=== PATIENT | female | born 1950 | race Caucasian/White ===

== ENCOUNTER 2016-04-20 09:35 | Day surgery (SDC) | payer MEDICAID ==
[2016-04-20] MEDS ORDERED: LIDOCAINE 1% 5 ML SDV ONE (09:53)
[2016-04-20] MEDS ORDERED: BUPIVACAINE 0.25% 10 ML SDV ONE (09:54)
[2016-04-20] MEDS ORDERED: DEXAMETHASONE 10 MG/ML VIAL ONE (09:54)
[2016-04-20] MEDS ORDERED: LIDOCAINE 1% 30 ML SDV ONE (09:54)
[2016-04-20] MEDS ORDERED: TRIAMCINOLONE ACETONIDE 40 MG/ML VIAL ONE (09:56)
[2016-04-20] MEDS ORDERED: NA BICARBONATE 50 MEQ/50 ML VIAL ONE (09:56)
[2016-04-20] MEDS ORDERED: IOPAMIDOL (ISOVUE-M 200) 20 ML VIAL IV ONE (09:57)
[2016-04-20] MEDS ORDERED: MIDAZOLAM 2 MG/2 ML VIAL ONE ×2 (10:14)
[2016-04-20] MEDS ORDERED: fentaNYL 100 MCG/2 ML INJ ONE (10:15)
[2016-04-20] MEDS ORDERED: MIDAZOLAM 2 MG/2 ML VIAL IVP PRN (10:16)
--- NOTE | 2016-04-20 15:14 | DX ---
Fluoroscopy Greater Than an Hour Indication: Right hip injection. Fluoroscopy Time: 48.7 seconds. Dose: 12.85 mGy. Findings: Two spot fluoroscopic images were performed showing needle approach to the right hip with contrast injection. Impression: Fluoroscopy provided for right hip injection. Please see separate report for full clinica l detail.
--- NOTE | 2016-04-24 02:35 | GPN ---
[f rep st] PROCEDURE NOTE DATE OF PROCEDURE: 04/20/2016 TIME OF PROCEDURE: 10 a.m. HISTORY OF PRESENT ILLNESS: The patient presents for right hip joint injection for the treatment of right hip pain and osteoarthritis. The last such injection done 11/09/2015 provided relief until about 1 month ago. She is not taking any blood thinners or antibiotics and denies allergies to shellfish, latex, contrast dye, and iodine. She denies . PROCEDURE: Right hip joint injection. DIAGNOSIS: Right hip osteoarthritis and pain. SITE: Right groin. PROVIDER: Dai Dickerson MD ANESTHESIA: Local with Versed 6 mg and fentanyl 100 mcg IV. COMPLICATIONS: None. ESTIMATED BLOOD LOSS: Minimal. PREPROCEDURE CONSENT: The preprocedure consent was obtained after the risks, benefits, and alternatives of the procedure were explained to the patient. The risks include but are not limited to nerve injury, joint injury, spinal cord injury, blood vessel injury, paralysis, brain injury or stroke, muscle injury, infection, adverse medication effect, bleeding, increased pain, , and any unforeseen consequences. The patient agreed and signed the consent for the procedure. PROCEDURE VERIFICATION AND TIMEOUT: Verbal verification of patient, site, and procedure was done. All present were in agreement. Please see nursing note for time of timeout. DESCRIPTION OF PROCEDURE: The patient was identified and placed in a supine position with the right hip externally rotated. Under fluoroscopic guidance, the femoral neck was identified and the area over the target site was prepped with ChloraPrep and draped in a sterile fashion. Then, 2 mL of 1% lidocaine were injected subcutaneously over the above location. After adequate local analgesia was obtained, a 22-gauge 3-1/2 inch spinal needle was advanced into the hip joint capsule under intermittent biplanar fluoroscopic guidance. The needle position was confirmed to be correct with fluoroscopy. After negative aspiration, 1 mL of nonionic contrast dye was injected. Good flow of dye was noted in a pattern outlining the hip joint. Then, 8 mL of a solution containing 80 mg of triamcinolone and 0.25% bupivacaine were injected in 1 mL increments with negative aspiration in between and no pain or paresthesia upon injection. The patient tolerated the procedure well and was monitored for 30 more minutes with no apparent complications, then was discharged home in good condition with a ride. She experienced no side effects from sedation and was instructed not to drive, operate heavy machinery, or make any life-altering decisions today. She was instructed to call our clinic with nonurgent concerns or 911 in an emergency. In particular, she was taught that new weakness or numbness, changes in bowel or bladder control, fever and swelling or redness over the injection site are all urgent concerns that would warrant calling 911 or going to an emergency care facility. She verbalized understanding and was discharged home with postprocedure instructions. ASSESSMENT AND PLAN: Right hip joint injection done today without complications. The patient will return to our clinic for followup and we will consider repeating the injection as needed. /[id number]/MODL MTDD
== END 2016-04-20 11:35 | disposition home or self-care (01) ==
LOC: FPAT 09:35 → FSGY 09:35
PROVIDERS: ATTEND Anesthesiology
DX: M16.11 Unilateral primary osteoarthritis, right hip (principal); M25.551 Pain in right hip
CPT/HCPCS: J2250; J3010; J3301; Q9966

== ENCOUNTER 2016-06-13 09:37 | Day surgery (SDC) | payer MEDICAID ==
[2016-06-13] MEDS ORDERED: LIDOCAINE 1% 5 ML SDV ONE (09:55)
[2016-06-13] MEDS ORDERED: MIDAZOLAM 2 MG/2 ML VIAL ONE (10:48)
[2016-06-13] MEDS ORDERED: fentaNYL 100 MCG/2 ML INJ ONE (10:49)
[2016-06-13] MEDS ORDERED: TRIAMCINOLONE ACETONIDE 40 MG/ML VIAL ONE (10:50)
[2016-06-13] MEDS ORDERED: NA BICARBONATE 50 MEQ/50 ML VIAL ONE (10:50)
[2016-06-13] MEDS ORDERED: LIDOCAINE 1% 30 ML SDV ONE (10:51)
[2016-06-13] MEDS ORDERED: BUPIVACAINE 0.25% 30 ML SDV ONE (10:51)
[2016-06-13] MEDS ORDERED: IOPAMIDOL (ISOVUE-M 200) 20 ML VIAL IV ONE (10:51)
[2016-06-13] MEDS ORDERED: DEXAMETHASONE 10 MG/ML VIAL ONE (10:51)
== END 2016-06-13 12:15 | disposition home or self-care (01) ==
LOC: FSGY 09:37
PROVIDERS: ATTEND Anesthesiology
DX: M70.61 Trochanteric bursitis, right hip (principal); M25.551 Pain in right hip; F31.9 Bipolar disorder, unspecified; J44.9 Chronic obstructive pulmonary disease, unspecified
CPT/HCPCS: J2250; J3010; J3301; Q9966

== ENCOUNTER 2016-08-23 13:32 | Emergency (ER) | payer MEDICAID ==
--- NOTE | 2016-08-23 14:06 | EDPHY ---
HPI/HX/ROS/PE/MDM Narrative: CHIEF COMPLAINT: Chest pain HPI: The patient is a 65-year-old female with a history of COPD. She has been in her usual state of health until this morning she woke up and coughed. Immediately following coughing, the patient experienced sharp anterior chest pain which persisted. Pain was primarily present only with coughing and has now largely subsided. She describes this as the worst pain she has felt. She denies diaphoresis, shortness of breath or syncope. She denies recent illness or hemoptysis. She wears 2 L of oxygen at baseline. REVIEW OF SYSTEMS: Aside from elements discussed in the HPI, a comprehensive 10-point review of systems was reviewed and is negative. PMH: COPD, no known cardiac history. SOCIAL HISTORY: Trying to quit smoking. Denies alcohol or drug abuse. PHYSICAL EXAM: General:Patient is alert, in no acute distress. ENT:Eyes are normal to inspection. ENT inspection normal. Neck: Normal inspection. Full range of motion. Respiratory:No respiratory distress. Bilateral expiratory wheezes and diminished air movement noted. Cardiovascular: Regular rate and rhythm. Strong peripheral pulses. Normal cap refill. Abdomen:The abdomen is nontender to palpation. There are no peritoneal signs. There are normal bowel sounds. Back: Normal to inspection. No tenderness to palpation. Skin: Normal color. No rash. Warm and dry. Extremities: Normal appearance. Full range of motion. Neuro: Oriented x3. Normal motor function. Normal sensory function. (Harish Enriquez) ED Course: EKG reveals sinus tachycardia with no acute ST changes. (Harish Enriquez) MDM: 1531: CT scan of the angiogram chest with IV contrast. The results of the study are shows no evidence of pulmonary embolism there is mucous plugging and atelectasis of the left lingula. No focal pneumonia. There is bronchial wall thickening.. The study was read by Dr. Faustino Jin. I viewed the images myself on the PACS system. 1557: This patient was signed over to me at 3:00 p.m. shift change from Dr. Enriquez. The patient was pending a CT angiogram per Dr. Enriquez the patient go home with the CT angiogram showed no pulmonary embolism. CT angiogram has been reviewed shows linear atelectasis mucous plugging at the left lung. This consistent where it is on the x-ray. No focal pneumonia. No PE. I did offer patient admission for shortness of breath however she has declined. She does have significant COPD, wears 2 L 24 hours a day at home, she tells me normally her oxygen saturation runs around 89-91%. On 2 L she tells me she runs 93-94. Here in the emergency room she has been running 89% to 90 on room air. I did offer breathing treatment here before going home she tells me that she has nebulizer at home and medications for breathing treatment she would not like 1 here and she would like to go home. She is requesting discharge. She does not have chest pain. Troponin negative. D-dimer positive CT angiogram negative for PE. COPD appearing picture on chest x-ray and CT. (Israel Morfin) - Data Points Imaging Results: Imaging Impressions Chest X-Ray 08/23/16 13:35 Impression: 1. COPD with mild perihilar bronchitis. 2. Interim development of a lingular infiltrate (and/or subsegmental atelectasis ) since 03/15/2016. Follow-up to assure resolution is recommended. Findings and recommendations were discussed with Harish Enriquez MD at 14:35 , on 08/23/2016. Chest/Thorax CTA 08/23/16 14:42 Impression: 1. No evidence of thrombopulmonary embolic disease. 2. Three-vessel calcified coronary plaque. 3. Minimally worse lingular atelectasis and peripheral mucous plugging. 4. No acute pulmonary process. 5. Tiny benign left upper lobe pulmonary nodules. Findings discussed with Emergency Department physician, Harish Enriquez MD on 08/23/2016 at 1530 hours. Laboratory Results: Laboratory Results 08/23/16 14:10 08/23/16 14:10 08/23/16 08/23/16 08/23/16 14:10 14:10 14:10 WBC 8.72 10^3/uL 10^3/uL (3.80-9.50) RBC 4.09 10^6/uL L 10^6/uL (4.18-5.33) Hgb 14.1 g/dL g/dL (12.6-16.3) Hct 39.9 % % (38.0-47.0) MCV 97.6 fL fL (81.5-99.8) MCH 34.5 pg H pg (27.9-34.1) MCHC 35.3 g/dL g/dL (32.4-36.7) RDW 11.6 % % (11.5-15.2) Plt Count 238 10^3/uL 10^3/uL (150-400) MPV 9.8 fL fL (8.7-11.7) Neut % (Auto) 74.9 % H % (39.3-74.2) Lymph % (Auto) 13.9 % L % (15.0-45.0) Angelina % (Auto) 9.5 % % (4.5-13.0) Eos % (Auto) 0.5 % L % (0.6-7.6) Baso % (Auto) 0.5 % % (0.3-1.7) Nucleat RBC Rel Count 0.0 % % (0.0-0.2) Absolute Neuts (auto) 6.54 10^3/uL H 10^3/uL (1.70-6.50) Absolute Lymphs (auto) 1.21 10^3/uL 10^3/uL (1.00-3.00) Absolute Monos (auto) 0.83 10^3/uL H 10^3/uL (0.30-0.80) Absolute Eos (auto) 0.04 10^3/uL 10^3/uL (0.03-0.40) Absolute Basos (auto) 0.04 10^3/uL 10^3/uL (0.02-0.10) Absolute Nucleated RBC 0.00 10^3/uL 10^3/uL (0-0.01) Immature Gran % 0.7 % % (0.0-1.1) Immature Gran # 0.06 10^3/uL 10^3/uL (0.00-0.10) D-Dimer 0.61 ug/mLFEU H ug/mLFEU (0.00-0.50) Sodium 137 mEq/L mEq/L (134-144) Potassium 3.1 mEq/L L mEq/L (3.5-5.2) Chloride 96 mEq/L L mEq/L (97-110) Carbon Dioxide 30 mEq/l mEq/l (22-31) Anion Gap 11 mEq/L mEq/L (8-16) BUN 10 mg/dL mg/dL (7-23) Creatinine 0.6 mg/dL mg/dL (0.6-1.0) Estimated GFR > 60 Glucose 189 mg/dL H mg/dL (70-100) Calcium 9.1 mg/dL mg/dL (8.5-10.4) Troponin I < 0.012 ng/mL ng/mL (0-0.034) General Time Seen by Provider: 08/23/16 13:36 Initial Vital Signs: Initial Vital Signs Temperature (C) 37.2 C 08/23/16 13:59 Heart Rate 119 H 08/23/16 13:59 Respiratory Rate 18 08/23/16 13:59 Blood Pressure 131/64 H 08/23/16 13:59 O2 Sat (%) 85 L 08/23/16 13:59 O2 Delivery Mode Nasal Cannula O2 (L/minute) 2 Allergies/Adverse Reactions: No Known Allergies Allergy (Verified 04/19/16 16:50) Home Medications: Medication Instructions Recorded Advair 100/50 (*) IH BID 11/01/15 IBUPROFEN 800 mg pe PO BID 11/01/15 Senna 1 tab PO DAILY 11/01/15 Spiriva Handihaler 18 mcg IH DAILY 11/01/15 ZOLPIDEM TARTRATE 12.5 mg PO DAILY 11/01/15 traMADol 50 mg PO PRN PRN 11/01/15 Furosemide 04/19/16 Herbals/Supplements -Info Only 04/19/16 Albuterol 5 mg/ml INH 06/06/16 Aspirin 06/06/16 Cyclobenzaprine 06/06/16 Flonase Nasal [place] 06/06/16 Omeprazole 06/06/16 Potassium 06/06/16 Simvastatin 06/06/16 Xtampza ER 06/06/16 Oxycodone HCl ER 06/13/16 Departure - Departure Disposition: Home, Routine, Self-Care Clinical Impression: Acute dyspnea COPD (chronic obstructive pulmonary disease) Qualifiers: COPD type: unspecified COPD Qualified Code(s): J44.9 - Chronic obstructive pulmonary disease, unspecified Condition: Good Instructions: COPD (Chronic Obstructive Pulmonary Disease) (ED) Additional Instructions: 1. please follow up with her primary care doctor 2. Return emergency room if there is any worsening symptoms questions or concerns. Referrals: Myriam Fisher MD [Primary Care Provider] - As per Instructions
[2016-08-23 14:19] LABS: % IMMATURE GRANULYOCYTES 0.7 % (0.0-1.1); ABSOLUTE IMMATURE GRANULOCYTES 0.06 10^3/uL (0.00-0.10); ADD DIFF? NO; ADD MORPH? NO; ADD SCAN? NO; ATYPICAL LYMPHOCYTE FLAG 40 (0-99); FRAGMENT RBC FLAG 0 (0-99); HEMATOCRIT 39.9 % (38.0-47.0); HEMOGLOBIN 14.1 g/dL (12.6-16.3); LEFT SHIFT FLG 10 (0-99); LIPEMIA HEMOLYSIS FLAG 90 (0-99); MEAN CELL HEMOGLOBIN 34.5 pg (27.9-34.1); MEAN CELL HEMOGLOBIN CONCENTR. 35.3 g/dL (32.4-36.7); MEAN CELL VOLUME 97.6 fL (81.5-99.8); MEAN PLATELET VOLUME 9.8 fL (8.7-11.7); PLATELET CLUMPS FLAG 10 (0-99); PLATELET COUNT 238 10^3/uL (150-400); RED BLOOD CELL COUNT 4.09 10^6/uL (4.18-5.33); RED CELL DISTRIBUTION WIDTH 11.6 % (11.5-15.2)
[2016-08-23 14:31] LABS: ANION GAP 11 mEq/L (8-16); CALCIUM 9.1 mg/dL (8.5-10.4); CARBON DIOXIDE 30 mEq/l (22-31); CHLORIDE 96 mEq/L (97-110); CREATININE 0.6 mg/dL (0.6-1.0); GLOMERULAR FILTRATION RATE > 60; GLUCOSE 189 mg/dL (70-100); POTASSIUM 3.1 mEq/L (3.5-5.2); SODIUM 137 mEq/L (134-144)
[2016-08-23 14:38] VITALS: RESP 16
[2016-08-23 14:44] LABS: TROPONIN I < 0.012 ng/mL (0-0.034)
[2016-08-23] MEDS ORDERED: IOPAMIDOL (ISOVUE 370) 100 ML BTL IV ONE (14:48)
[2016-08-23] MEDS ORDERED: IPRATROPIUM/ALBUTEROL 3 ML DEYVIAL IH ONE (15:47)
[2016-08-23 16:27] VITALS: BP 107/65; PULSE 105; TEMP 98.6; O2SAT 91
--- NOTE | 2016-08-26 18:40 | CPEKG ---
Heart Rate: 111 RR Interval: 541 P-R Interval: 152 QRSD Interval: 102 QT Interval: 360 QTC Interval: 489 P [place]: 68 QRS [place]: 19 T Wave [place]: 40 EKG Severity - BORDERLINE ECG - EKG Impression: SINUS TACHYCARDIA EKG Impression: LOW VOLTAGE IN FRONTAL LEADS EKG Impression: BORDERLINE PROLONGED QT INTERVAL Electronically Signed By: Antonietta Arias 27-Aug-2016 17:24:53
== END 2016-08-23 16:15 | disposition home or self-care (01) ==
LOC: CED 13:32
DX: J44.9 Chronic obstructive pulmonary disease, unspecified (principal); Z79.82 Long term (current) use of aspirin
CPT/HCPCS: 71020-PO; 71275-PO; 80048-PO; 84484-PO; 85025-PO; 85378-PO; Q9967

== ENCOUNTER → 2016-09-09 | Outpatient (CLI) | payer MEDICAID | LOC: FCPNEURO 20:00 | PROVIDERS: ATTEND Psychiatry & Neurology Sleep Medicine | DX: G47.33 Obstructive sleep apnea (adult) (pediatric) (principal) ==

== ENCOUNTER → 2016-10-23 | Outpatient (CLI) | payer OTHER, MEDICAID | LOC: FCPNEURO 23:28 | PROVIDERS: ATTEND Psychiatry & Neurology Sleep Medicine | DX: G47.33 Obstructive sleep apnea (adult) (pediatric) (principal); G47.34 Idiopathic sleep related nonobstructive alveolar hypoventilation; G47.61 Periodic limb movement disorder ==

== ENCOUNTER → 2017-01-21 | Outpatient (CLI) | payer OTHER, MEDICAID | LOC: CIMAGING 14:56 | PROVIDERS: ATTEND Registered Nurse | DX: M16.0 Bilateral primary osteoarthritis of hip (principal); M47.816 Spondylosis without myelopathy or radiculopathy, lumbar region | CPT/HCPCS: 73521-PO ==

== ENCOUNTER → 2017-04-09 | Outpatient (CLI) | payer OTHER, MEDICAID | LOC: BHFA 14:00 | PROVIDERS: ATTEND Internal Medicine Cardiovascular Disease | DX: I25.10 Atherosclerotic heart disease of native coronary artery without angina pectoris (principal) | CPT/HCPCS: 78452; 93017; A9500; J2785 ==

== ENCOUNTER 2017-06-12 07:57 | Inpatient (IN) | payer OTHER, MEDICAID ==
[~2017-06-12 07:57] MED LIST: NS IV ONE; POVIDONE-IODINE 20 ML in SODIUM CL IRRIG SOLUTION 500 ML IRR ONE; ROPIVACAINE 0.2% 80 MG, EPINEPHrine 0.2 MG, KETOROLAC TROMETHAMINE 30 MG in SYRINGE 0 ML IU ONE; TRANEXAMIC ACID IV ONE
[2017-06-12] MEDS ORDERED: ceFAZolin 1 GM/5 ML SYR ONE (08:02)
[2017-06-12] MEDS ORDERED: ACETAMINOPHEN 325 MG TAB PO ONE (08:16)
[2017-06-12] MEDS ORDERED: DEXAMETHASONE 4 MG/ML VIAL IVP ONE (08:16)
[2017-06-12] MEDS ORDERED: ONDANSETRON 4 MG/2 ML VIAL IVP ONE (08:16)
[2017-06-12] MEDS ORDERED: ceFAZolin 2 GM/SWFI 2 GM/20 ML SYR IVP ONE (08:16)
[2017-06-12] MEDS ORDERED: FAMOTIDINE 20 MG TAB PO ONE (08:16)
[2017-06-12] MEDS ORDERED: GABAPENTIN 300 MG CAP PO ONE (08:16)
[2017-06-12] MEDS ORDERED: LIDOCAINE 1% 2 ML INJ ID PRN (08:17)
[2017-06-12] MEDS ORDERED: LR 1,000 ML IV ONE ×2 (08:17→08:36)
--- NOTE | 2017-06-12 09:06 | PDHPUP ---
History & Physical Update H&P update statement: This history and physical update is based on an assessment of the patient which was completed after admission or registration (within 24 hours), but prior to the surgery/procedure. H&P update: H&P reviewed & patient examined, no change in patient's condition since H&P completed
[2017-06-12] MEDS ORDERED: MIDAZOLAM 2 MG/2 ML VIAL ONE (09:44)
[2017-06-12] MEDS ORDERED: PROPOFOL/EMULSION 500 MG/50 ML BOTTLE IV ONE (09:45)
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
[2017-06-12] MEDS ORDERED: BUPIVACAINE/DEXTROSE 7.5MG/ML 2 ML SPINAL AMP SP ONE (09:46)
[2017-06-12] MEDS ORDERED: LIDOCAINE 2% 100 MG/5 ML SYR ONE (09:49)
[2017-06-12] MEDS ORDERED: POTASSIUM CL 10 MEQ TAB PO PRN (11:32)
[2017-06-12] MEDS ORDERED: ALBUTEROL 60 PUFFS/8 GM MDI IH PRN (11:32)
[2017-06-12] MEDS ORDERED: FUROSEMIDE 20 MG TAB PO PRN (11:32)
[2017-06-12] MEDS ORDERED: FLUTICASONE NASAL 120 SPRAYS/16 GM MDI EACHNARE PRN (11:32)
[2017-06-12] MEDS ORDERED: NALOXONE HCL 0.4 MG/ML INJ IVP PRN (11:33)
[2017-06-12] MEDS ORDERED: fentaNYL 100 MCG/2 ML INJ IVP PRN (11:33)
[2017-06-12] MEDS ORDERED: ALBUTEROL 3 ML DEYVIAL IH PRN (11:33)
[2017-06-12] MEDS ORDERED: ONDANSETRON 4 MG/2 ML VIAL IVP PRN ×2 (11:33→11:35)
[2017-06-12] MEDS ORDERED: POLYETHYLENE GLYCOL 3350 17 GM PKT PO PRN (11:35)
[2017-06-12] MEDS ORDERED: PROMETHAZINE HCL 25 MG SUPPR PR PRN (11:35)
[2017-06-12] MEDS ORDERED: diphenhydrAMINE 25 MG CAP PO PRN (11:35)
[2017-06-12] MEDS ORDERED: METOCLOPRAMIDE 10 MG/2 ML VIAL IVP PRN (11:35)
[2017-06-12] MEDS ORDERED: PROMETHAZINE HCL 25 MG/ML INJ IVP PRN (11:35)
[2017-06-12] MEDS ORDERED: TEMAZEPAM 15 MG CAP PO PRN (11:35)
[2017-06-12] MEDS ORDERED: LACTULOSE 20 GM/30 ML UDCUP PO PRN (11:35)
[2017-06-12] MEDS ORDERED: DIPHENOXYLATE/ATROPINE LOMOTIL 1 TAB PO PRN (11:35)
[2017-06-12] MEDS ORDERED: traMADol 50 MG TAB PO PRN (11:35)
[2017-06-12] MEDS ORDERED: NS 500 ML IV PRN (11:35)
[2017-06-12] MEDS ORDERED: BISACODYL 10 MG SUPP PR PRN (11:35)
[2017-06-12] MEDS ORDERED: ONDANSETRON DISINTEGRATING 4 MG TAB PO PRN (11:35)
[2017-06-12] MEDS ORDERED: MAGNESIUM HYDROXIDE 30 ML UDCUP PO PRN (11:35)
--- NOTE | 2017-06-12 11:35 | POSTANESTH ---
Post Anesthetic Evaluation Cardiovascular Status: Similar to Pre-Op Cond Respiratory Status: Similar to Pre-op Cond. Level of Consciousness/Mental Status: Mildly Sleepy, Arousable Pain Control: Adequate, Prn Tx Ordered Nausea/Vomiting Control: Adequate, Prn Tx Ordered Complications Possibly Related to Anesthesia: None Noted
--- NOTE | 2017-06-12 11:52 | POSTOPPROG ---
Post Op Note Date of Operation: 06/12/17 Surgeon: Jose Rahman Fiber Technician: Tad/Krishna Anesthesiologist: Wale Post-op Diagnosis: right hip severe degenerative arthritis Procedure: right total hip arthroplasty Inf/Abcess present in the surg proc area at time of surgery?: No EBL: 100-500
[2017-06-12] MEDS: KETOROLAC 30 MG/1 ML SDV IVP PRN (12:51)
[2017-06-12] MEDS: ACETAMINOPHEN 325 MG TAB PO SCH ×2 (12:51→17:56)
[2017-06-12] MEDS: oxyCODONE IR 5 MG TAB PO PRN ×2 (12:52→18:00)
[2017-06-12] MEDS: CYCLOBENZAPRINE 10 MG TAB PO PRN (12:52)
[2017-06-12] MEDS: LR 1,000 ML IV SCH ×2 (12:53→21:21)
--- NOTE | 2017-06-12 13:34 | GOP ---
[f rep st] OPERATIVE REPORT DATE OF OPERATION: 06/12/2017 SURGEON: Jose Rahman MD SUPERVISOR MONEY ROOM: Mati Mishra and Cristian Keller. ANESTHESIA: Marcaine, spinal and IV sedation by Dr. Roque Echevarria. PREOPERATIVE DIAGNOSIS: Right hip severe degenerative arthritis. POSTOPERATIVE DIAGNOSIS: Right hip severe degenerative arthritis. PROCEDURE PERFORMED: Right total hip arthroplasty, ceramic femoral head on highly cross-linked polye thylene cup liner. FINDINGS: DESCRIPTION OF PROCEDURE: The patient was given 2 g of IV Ancef preoperatively within 60 minutes of surgery. She was also given IV tranexamic acid at a dose of 20 mg/kg. She was placed on the operati ng room table and given spinal anesthesia with Marcaine by Dr. Echevarria. She was then placed supine and given IV sedation. A Pham catheter was not used. She wore a FABY stocking and SCD on the nonope rative leg. She was rolled to the left lateral decubitus position. The position was secured with e pegboard table attachment. An axillary roll was used, and all pressure points were carefully padde d. I was careful to lock her pelvis in a vertical position. Her perineum was isolated with plastic adhesive drapes. The right hip and right lower extremity were prepped with ChloraPrep. They were dr aped free using sterile sheets, stockinette, and Ioban plastic adhesive drapes. The World Health Organization time-out was performed to verify the correct surgical side and site and the correct patient identity. The [place] time-out was also performed. I made a 5-inch straight oblique posterolateral hip skin incision. The subcutaneous tissues were sha rply divided and hemostasis was obtained using electrocautery. The fascia jd was identified and sp lit along the axis of its fibers. I curved posteriorly and proximally, and split the fascia of the g luteus richie and bluntly split the muscle fibers in line with their orientation. The Charnley self -retaining retractor was inserted. Her sciatic nerve was located, partially exposed, and protected t hroughout the procedure. The external rotators and the posterior hip capsule were divided as separat e layers at the base of the femoral neck, tagged, and reflected posteriorly. A smooth 8-inch Steinma nn pin was inserted vertically into the ilium, superior to the acetabulum. A 1/8-inch drill bit was inserted vertically into the greater trochanter and parallel to the first pin. The distance between the two was measured for leg length reference. Her femoral head was dislocated posteriorly. Severe degenerative changes were present on her femoral head. The femoral neck was osteotomized at the appr opriate level and inclination. I was careful to preserve all the posterior capsule and most of the anterior capsule. The remnant of her damaged labrum was excised. I prepared the femur first. This allowed me to magisterial district judge the amount of natural femoral neck anteversion. This, in turn, allowed me to later determine the correct amount of cup anteversion. She had approx imately 20 degrees of natural femoral neck anteversion. Her canal was opened laterally with a box ch winston. I power reamed with the starter reamer and then hand broached sequentially up to a size 5. I used a Lakeisha Accolade II high offset broach as a trial stem. I was careful to lateralize adequatel y. Appropriate retractors were inserted to expose the acetabulum. The acetabulum was reamed sequentiall y up to 53 mm. I selected a 54 mm Lakeisha Tritanium cluster hole hemispherical shell. This was vi ed securely into place in the proper degree of inclination and anteversion. I used the transverse ac etabular ligament and other acetabular bony landmarks to help me properly orient the cup. She had a thin medial wall of the acetabulum and I was careful not to over ream. I inserted 30 mm and 25 mm weaver pplemental screws through the shell for additional fixation. I also inserted a screw in metal dome h ole plug. I performed a series of trial reductions to determine length and stability. I concluded that the siz e 5 stem with high offset with the -2.5 mm neck length and a 36 mm head with a 0 degree or flush line r gave me the proper combination of appropriate length and good anterior and posterior stability. The flush, or 0-degree [place] X3 highly cross-linked polyethylene liner, was inserted and tapped sec urely into place. I chose the [place] Accolade II stem in a size 5 with high offset. This was inser faby press-fit. I did one final trial reduction and confirmed that the -2.5 mm neck length with the 3 6 mm head was the proper combination. The Lakeisha Biolox Delta ceramic head with an outside diameter of 36 mm and a neck length of -2.5 was tapped securely onto the clean trunnion. The acetabulum was irrigated and cleaned, and the hip was reduced one final time. She had excellent anterior and plastic surgery assistant ior stability and appropriate length. She was a few millimeters short preoperatively, and I was inte ntionally lengthening her. 40 mL of the joint anesthetic cocktail were injected into the capsule, the deep musculature, and the subcutaneous tissues around the skin edges. The joint was thoroughly irrigated one final time with a dilute Betadine solution. Her sciatic nerve was reinspected and looked unharmed. The external rotators and the posterior hip capsule were repaired in separate layers with #2 FiberWir e sutures through drill holes in the greater trochanter. This provided a strong posterior capsular a nd external rotator repair. The fascia jd was closed first with two #2 [id number] FiberWire s utures, followed by a running #2 barbed Ethicon Stratafix PDO suture. The subcutaneous tissues were closed with a running 0 barbed Ethicon Stratafix Monoderm suture. The skin was closed with a running 3-0 barbed Ethicon Stratafix Monoderm subcuticular suture. The skin edges were reapproximated and s ealed with Dermabond glue. The wound was covered with a large piece of waterproof Mepilex surgical d ressing. A long-leg FABY stocking and SCD were applied to her right lower extremity. She wore a stocking and S CD on the opposite leg during the procedure. An abduction pillow was placed between her knees. She was awakened from anesthesia and rolled to the supine position on her [facility]. She was taken to PACU in satisfactory condition. There were no recognized intraoperative complications. The estimated blood loss was about 300 mL. The sponge and needle count were correct on 2 occasions. I used a [place] Tritanium hemispherical cluster hole acetabular shell with an outside diameter of 54 mm. The liner was a Lakeisha X3 0-degree highly cross-linked liner with an inside diameter of 36 mm. The femoral component was a press-fit [place] Accolade II stem and high offset with in a size 5. T he femoral head was a Lakeisha Biolox Delta ceramic head with a -2.5 mm neck length and a 36 mm outsid e diameter. Mati Mishra and Cristian Keller acted as surgical assistants. Their assistance was a medical necess ity for safe completion of the procedure. /[id number]/MODL
[2017-06-12] MEDS ORDERED: ceFAZolin 2 GM/DEXTROSE 100 ML IV SCH (14:00)
[2017-06-12] MEDS: ceFAZolin 2 GM/SWFI 2 GM/20 ML SYR IVP SCH ×2 (14:09→22:50)
--- NOTE | 2017-06-12 14:31 | ASMTCMCOM ---
CM Note CM Note Notes: Pt s/p R total hip arthroplasty. PT rec SNF today, pt sleeping but dghtrs present and request referral [facility] CM to follow for d/c planning. Date Signed: 06/12/2017 02:30 PM Electronically Signed By:NAVNEET Valderrama
[2017-06-12] MEDS: TRANEXAMIC ACID 650 MG TAB PO SCH (17:56)
[2017-06-12] MEDS: PRAVASTATIN SODIUM 10 MG TAB PO SCH (17:56)
[2017-06-12] MEDS ORDERED: NON-FORMULARY NEW DRUG (Simvastatin [Zocor] 5 MG) PO SCH (18:00)
[2017-06-12] MEDS: FAMOTIDINE 20 MG TAB PO SCH (21:20)
[2017-06-12] MEDS: SENNOSIDES/DOCUSATE SODIUM TAB PO SCH (21:20)
[2017-06-12] MEDS: morphINE SR 15 MG TAB PO SCH (21:21)
[2017-06-12] MEDS: ASPIRIN 325 MG TAB PO SCH (21:21)
[2017-06-13] MEDS: ACETAMINOPHEN 325 MG TAB PO SCH ×5 (02:15→23:44)
[2017-06-13] MEDS: TRANEXAMIC ACID 650 MG TAB PO SCH ×2 (02:15→08:27)
[2017-06-13] MEDS: CYCLOBENZAPRINE 10 MG TAB PO PRN ×3 (02:17→23:44)
[2017-06-13] MEDS: oxyCODONE IR 5 MG TAB PO PRN ×4 (02:21→15:52)
[2017-06-13] MEDS: KETOROLAC 30 MG/1 ML SDV IVP PRN ×2 (03:57→12:23)
--- NOTE | 2017-06-13 07:25 | SOAPPROG ---
SOAP Progress Note Assessment/Plan: Assessment: POD #1. s/p R LESLYE Awake, alert, afebrile. Normal sciatic nerve function. Dressing clean and dry. Post op films look good. OOB with PT yesterday. Moderate pain. Plan: Cont PT/OT today. Ambulate as tolerated. Going to SNF. Must stay 3 nights due to Medicare requirements. Recheck tomorrow. Anticipate transfer Saturday. 06/13/17 07:22 Objective: Vital Signs Temp Pulse Resp BP Pulse Ox 37.0 C 88 19 118/58 L 96 06/13/17 04:00 06/13/17 04:00 06/13/17 04:00 06/13/17 04:00 06/13/17 04:00 Laboratory Results 06/13/17 05:13 06/12/17 06/13/17 06/14/17 05:59 05:59 05:59 Intake Total 3647 Output Total 8995 Balance 1572 ICD10 Worksheet Patient Problems: Problems Problem Status Onset Osteoarthritis of right hip Acute
[2017-06-13] MEDS: morphINE SR 15 MG TAB PO SCH ×2 (08:26→19:52)
[2017-06-13] MEDS: FERROUS SULFATE 140 MG TAB.ER PO SCH (08:27)
[2017-06-13] MEDS: SENNOSIDES/DOCUSATE SODIUM TAB PO SCH ×2 (08:27→19:52)
[2017-06-13] MEDS: ASPIRIN 325 MG TAB PO SCH (08:28)
[2017-06-13] MEDS: FAMOTIDINE 20 MG TAB PO SCH ×2 (08:28→19:52)
[2017-06-13] MEDS: NICOTINE 21 MG/24 HR PATCH TD SCH (17:56)
[2017-06-13] MEDS: PRAVASTATIN SODIUM 10 MG TAB PO SCH (17:58)
[2017-06-13] MEDS: OXYMETAZOLINE 30 ML NASAL SPRAY NS PRN (17:58)
[2017-06-13] MEDS: FLUTICASONE NASAL 120 SPRAYS/16 GM MDI EACHNARE PRN (17:59)
[2017-06-13] MEDS: IPRATROPIUM 0.06% NASAL SPRAY EACHNARE PRN (18:00)
[2017-06-14] MEDS: ACETAMINOPHEN 325 MG TAB PO SCH ×4 (05:18→23:12)
[2017-06-14] MEDS: oxyCODONE IR 5 MG TAB PO PRN (05:18)
--- NOTE | 2017-06-14 06:51 | SOAPPROG ---
SOAP Progress Note Assessment/Plan: Assessment: Afebrile. Vital signs stable. She has been up walking in the room. She was complaining of right thigh cramping and right knee pain yesterday. Radiographs of her right knee are normal. She is more comfortable today. Her dressing is dry. Hemoglobin and hematocrit are stable. Plan: Continue physical therapy today. Transfer to [facility] on Saturday. 06/14/17 06:50 Objective: Vital Signs Temp Pulse Resp BP Pulse Ox 37 C 77 17 140/81 H 92 06/14/17 04:00 06/14/17 04:00 06/14/17 04:00 06/14/17 04:00 06/14/17 04:00 Laboratory Results 06/14/17 05:00 06/13/17 06/14/17 06/15/17 05:59 05:59 05:59 Intake Total 3647 1250 Output Total 2532 7970 Balance 1572 -600 ICD10 Worksheet Patient Problems: Problems Problem Status Onset Osteoarthritis of right hip Acute
[2017-06-14] MEDS: CYCLOBENZAPRINE 10 MG TAB PO PRN ×2 (09:27→21:36)
[2017-06-14] MEDS: FAMOTIDINE 20 MG TAB PO SCH ×2 (09:27→21:35)
[2017-06-14] MEDS: NICOTINE 21 MG/24 HR PATCH TD SCH (09:27)
[2017-06-14] MEDS: SENNOSIDES/DOCUSATE SODIUM TAB PO SCH ×2 (09:27→21:34)
[2017-06-14] MEDS: FERROUS SULFATE 140 MG TAB.ER PO SCH (09:27)
[2017-06-14] MEDS: ASPIRIN 325 MG TAB PO SCH (09:27)
[2017-06-14] MEDS: morphINE SR 15 MG TAB PO SCH ×2 (09:27→21:36)
[2017-06-14] MEDS: IPRATROPIUM 0.06% NASAL SPRAY EACHNARE PRN ×2 (09:38→21:40)
[2017-06-14] MEDS: OXYMETAZOLINE 30 ML NASAL SPRAY NS PRN ×2 (09:39→21:40)
[2017-06-14] MEDS: FLUTICASONE NASAL 120 SPRAYS/16 GM MDI EACHNARE PRN ×2 (09:39→21:41)
--- NOTE | 2017-06-14 11:27 | GDS ---
[f rep st] DISCHARGE SUMMARY ADMISSION DIAGNOSIS: Right hip arthritis. DISCHARGE DIAGNOSIS: Right hip arthritis. OPERATION PERFORMED: 06/12/17: Right total hip arthroplasty. POSTOPERATIVE COMPLICATIONS: None. CONDITION ON DISCHARGE: Improved. DESCRIPTION OF HOSPITAL COURSE: The patient was admitted to the hospital on the morning of surgery. Her admission CBC, electrolytes, BUN, and creatinine were all normal. The same day, under a combina tion of Marcaine, spinal, and IV sedation, she underwent a right total hip arthroplasty. Postoperati vely, she was treated with multimodal DVT prophylaxis, including aspirin. On the 2nd postoperative d ay, her hemoglobin and hematocrit were 11.8 and 34.3. She did not need any transfused blood. She wa s seen by Physical Therapy and made slow progress with mobilization and walking. By the time of disc harge, she was afebrile, her wound was clean and dry, and she was independent walking with a walker. DISPOSITION: The patient is transferred to [facility]. She may progress to full weightbe aring on the right as tolerated. Use FABY stockings for 1 week. Continue aspirin 325 mg daily for 21 days. She was on large doses of narcotics preoperatively for chronic pain. She will continue those postoperatively. I will see her back in the office on July 04, 2017. If there any problems, she i s to call me at the office. Copy requested to: [facility] /[id number]/MODL
--- NOTE | 2017-06-14 14:47 | ASMTCMCOM ---
CM Note CM Note Notes: Pt has been accepted at [facility] and [facility] SNFs. As of this morning pt had been undecided and wanted to talk to her daughters who have toured the facilities CM to follow for SNF choice. D/c plan of care: SNF when medically stable. Date Signed: 06/14/2017 02:46 PM Electronically Signed By:NAVNEET Valderrama
[2017-06-14] MEDS: PRAVASTATIN SODIUM 10 MG TAB PO SCH (17:47)
[2017-06-14 22:36] VITALS: RESP 16
[2017-06-15] MEDS: oxyCODONE IR 5 MG TAB PO PRN ×3 (00:38→10:54)
[2017-06-15] MEDS: ACETAMINOPHEN 325 MG TAB PO SCH ×2 (06:16→13:20)
[2017-06-15 07:27] VITALS: BP 125/74; PULSE 75; TEMP 98.4; O2SAT 95
--- NOTE | 2017-06-15 07:28 | PDIAF ---
- Diagnosis Diagnosis: Hip OA Code Status: Full Code - Medication Management Discharge Medications: Medications to Continue on Transfer Albuterol [Proventil Inhaler HFA (*)] 1 - 2 puffs IH DAILY PRN 05/14/17 [Last Taken 06/05/17] Calcium Carbonate [Oyster Shell Calcium 500 mg (*)] 500 mg PO DAILY 05/14/17 [ Last Taken 06/02/17] Cholecalciferol Vit D3 [Vitamin D3 (*)] 5,000 units PO DAILY 05/14/17 [Last Taken 06/02/17] Cyanocobalamin [Vitamin B12 (*)] 1,000 mcg PO DAILY 05/14/17 [Last Taken ] Cyclobenzaprine [Flexeril 10 MG (*)] 10 mg PO TID PRN 05/14/17 [Last Taken 06/11] Fluticasone Nasal [Flonase Nasal [place]] 1 sprays NASAL BID PRN 05/14/17 [Last Taken 06/11/17] Furosemide [Lasix 20 MG (*)] 20 mg PO DAILY PRN 05/14/17 [Last Taken 06/10/17] Herbals/Supplements -Info Only 1 ea PO DAILY 05/14/17 [Last Taken 06/02/17] Magnesium Hydroxide [Milk of Magnesia] 400 mg PO DAILY PRN 05/14/17 [Last Taken 06/02/17] Potassium Cl [Klor-Con 10 meq (RX)] 10 meq PO DAILY PRN 05/14/17 [Last Taken ] Simvastatin [Zocor] 5 mg PO DAILY18 05/14/17 [Last Taken 06/11/17] diphenhydrAMINE [Benadryl 25 MG (*)] 25 mg PO HS 05/14/17 [Last Taken 06/10/17] morphINE IR [morphINE IR 15 mg (*)] 15 mg PO TID PRN 05/14/17 [Last Taken ] morphINE SR [Ms Contin/Oramorph 15 mg (*)] 15 mg PO BID 05/14/17 [Last Taken ] traMADol [Ultram 50 mg (*)] 50 mg PO TID PRN 05/14/17 [Last Taken 06/11/17] Ipratropium 0.06% Nasal [Atrovent 0.06% Nasal] 2 sprays EACHNARE QID PRN [Last Taken Unknown] Oxymetazoline HCl [Sinus Nasal [place]] 2 ml NS BID PRN 06/13/17 [Last Taken Unknown] Acetaminophen [Tylenol 325mg (*)] 650 mg PO Q6HRS tab 06/15/17 [Last Taken Unknown] Aspirin [Aspirin 325 mg (*)] 325 mg PO DAILY tab 06/15/17 [Last Taken Unknown] Ferrous Sulfate [Slow Fe 140 MG (*)] 140 mg PO DAILY tab.er 06/15/17 [Last Taken Unknown] Ondansetron Odt [Zofran Odt 4 mg (*)] 4 mg PO Q4HRS PRN tab 06/15/17 [Last Taken Unknown] Sennosides/Docusate Sodium [Senokot-S] 1 - 2 tab PO BID tab 06/15/17 [Last Taken Unknown] celeCOXIB [Celebrex (*)] 200 mg PO DAILY cap 06/15/17 [Last Taken Unknown] oxyCODONE IR [Oxycodone Ir (*)] 5 - 10 mg PO Q3HRS PRN tab 06/15/17 [Last Taken Unknown] Discharge Medications: Refer to the Discharge Home Medication list for PRN reason. - Orders Services needed: Physical Therapy, Occupational Therapy Diet Recommendation: no restrictions on diet Diet Texture: Regular Texture Diet Pham: Not applicable Mauro Stockings Discontinue Date: 1 week Wound Care Instructions: keep clean and dry. You may shower. Activity/Weight Bearing Restrictions: as tolerated. - Follow Up Care Current Providers and Referrals: Myriam Fisher MD [Primary Care Provider] - Jose Rahman MD [Medical Doctor] - follow up as scheduled (follow up in 3 weeks as planned.)
[2017-06-15] MEDS: SENNOSIDES/DOCUSATE SODIUM TAB PO SCH (08:09)
[2017-06-15] MEDS: FAMOTIDINE 20 MG TAB PO SCH (08:09)
[2017-06-15] MEDS: NICOTINE 21 MG/24 HR PATCH TD SCH (08:09)
[2017-06-15] MEDS: FERROUS SULFATE 140 MG TAB.ER PO SCH (08:09)
[2017-06-15] MEDS: ASPIRIN 325 MG TAB PO SCH (08:10)
[2017-06-15] MEDS: morphINE SR 15 MG TAB PO SCH (08:10)
--- NOTE | 2017-06-15 10:37 | ASDISCHSUM ---
Discharge Information Plan Status:SNF Medically Cleared to Leave:06/14/2017 Discharge Date:06/14/2017 CM D/C Disposition:Detention Facility ADT D/C Disposition:Detention Facility Projected Discharge Date:06/15/2017 01:00 PM Transportation at D/C:Wheelchair Van Discharge Delay Reason: Follow-Up Date:06/15/2017 01:00 PM Discharge Slot: Final Diagnosis:R LESLYE Placement Information Referral Type:*Correction/SNF Referral ID:[id number] Provider Name:Madeleine Guzman Address 1:[address] Phone Number: Address 2: Fax Number: City:[place] Selection Factors: State:[place] Patient Contact Information Contact Name:ANN Relationship:Daughter Address: Home Phone: City: [place] [facility] Phone: [facility] Code: Email: Financial Information Financial Class:Medicare Primary Plan Desc:MEDICARE INPATIENT Primary Plan Number:[id number] Secondary Plan Desc:[place] Secondary Plan Number:[id number] Assessment Information [facility] CM Progress Note CM Note CM Note Notes: Pt s/p R total hip arthroplasty. PT rec SNF today, pt sleeping but dghtrs present and request referral to [facility] (referral sent in [employer]). CM to follow for d/c planning. Date Signed: 06/12/2017 02:30 PM Electronically Signed By:NAVNEET Valderrama [facility] CM Progress Note CM Note CM Note Notes: Pt has been accepted at [facility], [facility]. As of this morning pt had been undecided and wanted to talk to her daughters who have toured the facilities CM to follow for SNF choice. D/c plan of care: SNF when medically stable. Date Signed: 06/14/2017 02:46 PM Electronically Signed By:NAVNEET Valderrama Intervention Information Intervention Type:*IM-Signed Date of Service:06/14/2017 02:14 PM Patient Type:Inpatient Staff Member:Ruby Centeno Hours: Discipline: Severity: Comment:
--- NOTE | 2017-06-15 11:08 | ASMTCMCOM ---
CM Note CM Note Notes: Dc order received. Met with pt to discuss dc to SNF; pt would like to go to [facility]. Spoke witholivier Toledo, at [facility]; confirmed bed available. Dc paperwork faxed; confirmed received. Spoke with [place], at [facility], to arrange transport. Alerted pt & RN. Pt to notify her daughter. No other needs at this time. Date Signed: 06/15/2017 11:07 AM Electronically Signed By:Catherine Bennett RN
== END 2017-06-15 13:21 | DRG 470 ==
LOC: F3N 07:57
PROVIDERS: ADMIT Orthopaedic Surgery; ATTEND Orthopaedic Surgery
PROC: 0SR904A Replacement of Right Hip Joint with Ceramic on Polyethylene Synthetic Substitute, Uncemented, Open Approach (ICD-10-PCS; principal; 2017-06-12 09:15)
DX: M16.11 Unilateral primary osteoarthritis, right hip (principal); F17.210 Nicotine dependence, cigarettes, uncomplicated; G47.30 Sleep apnea, unspecified
CPT/HCPCS: 97110-GP; 97116-GP; 97161-GP; 97166-GO; 97530-GP; 97535-GO; C1713; G8978-GP-CK; G8979-GP-CI; G8987-GO-CK; G8988-GO-CI; J0171; J0690; J1100; J1885; J2001; J2250; J2270; J2405; J2704; J2795

== ENCOUNTER → 2018-04-30 | Outpatient (CLI) | payer OTHER, MEDICAID | LOC: CIMAGING 12:30 | PROVIDERS: ATTEND Family Medicine | DX: Z12.31 Encounter for screening mammogram for malignant neoplasm of breast (principal); Z80.3 Family history of malignant neoplasm of breast ==